=== PATIENT | male | born 1995 | race Caucasian/White ===

== ENCOUNTER → 2016-10-30 | Outpatient (CLI) | payer OTHER | LOC: CIMAGING 08:47 | PROVIDERS: ATTEND Physician Assistant Medical | DX: R10.11 Right upper quadrant pain (principal) | CPT/HCPCS: 76705-PO ==

== ENCOUNTER → 2016-11-07 | Outpatient (CLI) | payer OTHER | LOC: FIMAGING 08:18 | PROVIDERS: ATTEND Physician Assistant | DX: R10.31 Right lower quadrant pain (principal); Z90.49 Acquired absence of other specified parts of digestive tract ==

== ENCOUNTER 2017-05-10 22:08 | Emergency (ER) | payer OTHER ==
[2017-05-10 22:23] VITALS: BP 120/90; PULSE 77; RESP 18; TEMP 97.2; O2SAT 96
--- NOTE | 2017-05-10 22:36 | EDPHY ---
H & P Stated Complaint: R TESTICULAR PAIN, FINISHED ANTIBIOTIC YESTERDAY. Time Seen by Provider: 05/10/17 22:11 HPI/ROS: Chief Complaint: Right scrotal pain HPI: 22-year-old male was diagnosed with right-sided epididymitis clinically 2 weeks ago. He was started on doxycycline. Patient completed the antibiotic yesterday. Pain had been getting better but for the last 3 hr doses scantly worsening pain in the same area. Patient had a similar episode last summer and was treated for antibiotics at that time. He was also recently diagnosed with Crohn's disease within the last 3 months. He is currently taking Humira. No urinary urgency or frequency. No new sexual partners. No history of STI in the past. No fevers or chills. No skin rash or redness. ROS: 10 point Review of Systems is negative except as noted in the HPI. PMH: Crohn's disease, epididymitis, appendectomy Social History: No smoking, no alcohol, no recreational drug use Family History: non-contributory Physical Exam: Gen: Awake, Alert, No Distress HEENT: Nose: no rhinorrhea Eyes: PERRLA, EOMI Mouth: Moist mucosa Neck: Supple, no JVD Chest: nontender, lungs clear to auscultation Heart: S1, S2 normal, no murmur Abd: Soft, non-tender, no guarding Genital: Normal circumcised penis, with lesions. Nontender. Normal testicular lie bilaterally. No testicular tenderness bilaterally. There is some right-sided epididymal enlargement with tenderness reproducing presenting complaint. No inguinal lymphadenopathy. No inguinal masses. No erythema. Not warm to the touch. Normal cremasteric. Back: no CVA tenderness, no midline tenderness Ext: no edema, non-tender Skin: no rash Neuro: CN II-XII intact, Sensation grossly intact, Strength 5/5 in bilateral upper and lower extremities - Personal History Current Tetanus Diphtheria and Acellular Pertussis (TDAP): Yes - Medical/Surgical History Hx Asthma: No Hx Chronic Respiratory Disease: No Hx Diabetes: No Hx Cardiac Disease: No Hx Renal Disease: No Hx Cirrhosis: No Hx Alcoholism: No Hx HIV/AIDS: No Hx Splenectomy or Spleen Trauma: No Other PMH: CHRON'S - Social History Smoking Status: Former smoker Constitutional: Initial Vital Signs Temperature (C) 36.2 C 05/10/17 22:17 Heart Rate 77 05/10/17 22:17 Respiratory Rate 18 05/10/17 22:17 Blood Pressure 120/90 H 05/10/17 22:17 O2 Sat (%) 96 05/10/17 22:17 O2 Delivery Mode Room Air Allergies/Adverse Reactions: No Known Allergies Allergy (Verified 05/10/17 22:15) Home Medications: Medication Instructions Recorded Adalimumab [Humira] 05/10/17 Hydrocodone/Acetaminophen 1 - 2 each PO Q4-6PRN PRN #10 05/10/17 [Hydrocodon-Acetaminophen 5-325] tablet Hyoscyamine Sulfate 05/10/17 Pantoprazole Sodium 05/10/17 levOFLOXACIN [Levaquin] 500 mg PO DAILY #14 tablet 05/10/17 Medical Decision Making ED Course/Re-evaluation: 22-year-old male presenting with symptoms consistent with epididymitis and clinical exam suggestive of very mild epididymitis. Does not have a large amount of scrotal swelling or erythema. He has no testicular lying cremasteric. No indications for ultrasound at this time. Will start him on Levaquin as he completed a course of doxycycline without significant improvement. Will discharge him with strict instructions return for any worsening symptoms. While for referral for urology follow-up. Will send him home with hydrocodone and a prescription for his pain control. There are no clinical or historical findings suggestive of torsion. Departure - Departure Disposition: Home, Routine, Self-Care Clinical Impression: Epididymitis Condition: Good Instructions: Epididymitis (ED), Hydrocodone/Acetaminophen (By mouth) Additional Instructions: Please take your full course of antibiotics. Follow up with primary care physician in 2-3 days for re-evaluation. Follow up with urologist next week for further evaluation. Return to the emergency depart for increasing pain, redness, fevers, chills, nausea, vomiting, or any other concerns. Referrals: Santhosh Birmingham MD [Primary Care Provider] - As per Instructions Prescriptions: Hydrocodone/Acetaminophen [Hydrocodon-Acetaminophen 5-325] 1 - 2 each PO Q4- 6PRN PRN #10 tablet PRN Reason: Pain, Severe levOFLOXACIN [Levaquin] 500 mg PO DAILY #14 tablet
[2017-05-10] MEDS ORDERED: HYDROCOD/APAP 5/325 PREPACK#6 BTL TAKEHOME ONE (22:39)
== END 2017-05-10 22:52 | disposition home or self-care (01) ==
LOC: CED 22:08
DX: N45.1 Epididymitis (principal); Z87.891 Personal history of nicotine dependence

== ENCOUNTER 2017-05-17 09:50 | Emergency (ER) | payer OTHER ==
[2017-05-17 09:57] VITALS: RESP 16; TEMP 98.4; O2SAT 96
--- NOTE | 2017-05-17 10:20 | EDPHY ---
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 He was not doing any heavy lifting or work. The pain is worse when he moves around such as twisting or sitting up. He says he sometimes feels like something pops out of place in his lower ribs particularly on the right. The he has had this lower rib pain previously but it is resolved however it has been persistent for the past 24 hr. He took hydrocodone that he had for his epididymitis with minimal relief but states he was able to sleep. He denies any recent trauma to the chest. The pain is not pleuritic. He denies any shortness of breath. He denies any fever, chills, nausea or vomiting. He has had no cough. He says his Crohn's disease has been in fairly good control. He is currently taking levofloxacin since May 15 for epididymitis. This was initially diagnosed clinically 2 weeks prior to that when he was treated with doxycycline but did not improve so we started on the levo. Since taking levofloxacin the testicular and epididymal pain has completely resolved although he says he still continues to have"cysts". He denies any dysuria, urgency frequency or penile discharge. He has no new sexual partners and has no prior history of STDs. Patient is been on ciprofloxacin in the past which gave him a severe tendinitis in his arms and legs. REVIEW OF SYSTEMS: As in HPI, and all other systems reviewed and are negative Smoking Status: Former smoker Physical Exam: General Appearance: Alert, well appearing, speaking full sentences. Head: normocephalic, atraumatic Eyes: Pupils equal and round, reactive to light, no pallor or injection. Extraocular movements intact Mouth: Mucous membranes moist. Respiratory: Normal, effort, lungs are clear to auscultation. No wheezes, rales or rhonchi. No chest wall tenderness, no lower rib tenderness or crepitus or step-off, very mild lower sternal tenderness, no posterior rib tenderness Cardiovascular: Regular rate and rhythm. S1, S2, no murmurs, gallops or rubs appreciated Gastrointestinal: Abdomen is soft and nontender, no masses, bowel sounds normal. Back: No CVA tenderness, no bony tenderness Neurological: Awake, alert and oriented x 3, no pronator drift, normal gait, no pronator drift Skin: Warm and dry, diffuse acne. Musculoskeletal: No deformities or tenderness. Full range of motion Extremities: no edema, no tenderness, DP2+ bilat Psychiatric: Patient has normal affect, there is no agitation. Constitutional: Initial Vital Signs Temperature (C) 36.9 C 05/17/17 09:54 Heart Rate 98 05/17/17 09:54 Respiratory Rate 16 05/17/17 09:54 Blood Pressure 133/98 H 05/17/17 09:54 O2 Sat (%) 96 05/17/17 09:54 O2 Delivery Mode Room Air Allergies/Adverse Reactions: azathioprine [From Imuran] Allergy (Verified 05/17/17 09:57) Pt reports red/swelling hands ciprofloxacin Allergy (Verified 05/17/17 09:57) Pt reports tendonitis Home Medications: Medication Instructions Recorded Adalimumab [Humira] 05/10/17 Hyoscyamine Sulfate 05/10/17 Pantoprazole Sodium 05/10/17 Lidocaine [Lidoderm] 1 each TP DAILY PRN #30 adh..patch 05/17/17 levOFLOXACIN [Levaquin] 05/17/17 MDM/Departure - MDM Imaging Results: Imaging Impressions Chest X-Ray 05/17/17 10:12 Impression: Normal. Imaging: I viewed and interpreted images myself ED Course/Re-evaluation: 21-year-old man presents with localized chest wall pain and unremarkable exam. Chest x-ray shows nothing acute. There is no evidence of respiratory compromise or 6 significant systemic toxicity. Patient has had a problem with ciprofloxacin the past which gave him tendinitis in other muscle pains. I wonder if his symptoms could be related to the levofloxacin and he has been on this for 10 days so we will stop this. I am recommending symptomatic treatment with acetaminophen and topical lidocaine patches. We discussed return precautions including but not limited to fever, uncontrolled pain, difficulty breathing or other new problems or concerns. - Depart Disposition: Home, Routine, Self-Care Clinical Impression: Anterior chest wall pain Condition: Good Instructions: Chest Wall Pain (ED) Additional Instructions: You were seen by Dr. Erika Hutchinson today. Try taking acetaminophen a 1000 mg every 4 hr while awake as needed for pain. Try also topical lidocaine patches. Stop the levofloxacin. I recommend you avoid all Floxin antibiotics in the future. Return for any worsening or new concerns. Prescriptions: Lidocaine [Lidoderm] 1 each TP DAILY PRN #30 adh..patch PRN Reason: pain Referrals: Santhosh Birmingham MD [Primary Care Provider] - As per Instructions
[2017-05-17 11:03] VITALS: BP 133/69; PULSE 86
== END 2017-05-17 11:04 | disposition home or self-care (01) ==
LOC: CED 09:50
DX: R07.89 Other chest pain (principal); Z87.891 Personal history of nicotine dependence
CPT/HCPCS: 71046-PO

== ENCOUNTER 2017-05-26 15:54 | Emergency (ER) | payer OTHER ==
--- NOTE | 2017-05-26 16:30 | EDPHY ---
H & P Time Seen by Provider: 05/26/17 16:10 HPI/ROS: CHIEF COMPLAINT: Testicular pain, possible epididymal cyst HISTORY OF PRESENT ILLNESS: This is a 22-year-old male presents to the emergency department reporting for the last 3-4 days he has had testicular discomfort and is concerned he may have epididymal cyst. Patient does have a history of being treated for epididymitis several years ago. Over the last month, he has been seen on 2 occasions for right scrotal discomfort with the majority of his discomfort being in the epididymis. He was treated initially with levofloxacin after visit [place] [facility] [place] at the end of April. He took levofloxacin for 9 days and developed some chest discomfort that was thought to potentially be related to the levofloxacin. He does have a history of developing tendinitis in the setting of ciprofloxacin in the remote past. He presents again today, about 1 week after stopping the levofloxacin, reporting discomfort in his left testicle and concerned that he has a left epididymal cyst. He has had no fever, no dysuria, no hematuria, no penile discharge. No lesions on his penis. Patient reports no unprotected sex for approximately 3 years. He reports last sexual intercourse was several months ago. His partner is out of state. Discomfort is worse when standing and walking, improved when resting. No fever, chills, chest pain, shortness of breath, palpitations, vomiting, diarrhea, urinary complaints, headache, lightheadedness. REVIEW OF SYSTEMS: Aside from elements discussed in the HPI, a comprehensive 10-point review of systems was reviewed and is negative. PAST MEDICAL HISTORY: History of Crohn's disease, and epididymitis. Currently taking Humira. SOCIAL HISTORY: Heterosexual. Nonsmoker. VITAL SIGNS Reviewed by me. GENERAL: Well-developed, well-nourished, no acute distress. HEENT: Benign exam, no conjunctival injection LUNGS: Clear to auscultation bilaterally, no wheezes, rhonchi or rales. CARDIAC: Regular rate and rhythm, no rubs, murmurs or gallops. ABDOMEN: Soft, nontender, nondistended, bowel sounds normal. BACK: No CVA tenderness. : Normal external genitalia. Circumcised male. No penile lesions. Mild tenderness to palpation along the epididymis bilaterally. Testes have a normal lie. No scrotal swelling. EXTREMITIES: No trauma. No edema. Range of motion is normal throughout. NEURO: Alert and oriented, grossly nonfocal. SKIN: Warm and dry, no rash. PSYCHIATRIC: Normal mentation, no agitation. Smoking Status: Former smoker Constitutional: Initial Vital Signs Temperature (C) 36.8 C 05/26/17 15:58 Heart Rate 85 05/26/17 15:58 Respiratory Rate 16 05/26/17 15:58 Blood Pressure 128/68 H 05/26/17 15:58 O2 Sat (%) 97 05/26/17 15:58 O2 Delivery Mode Room Air Allergies/Adverse Reactions: azathioprine [From Imuran] Allergy (Verified 05/17/17 09:57) Pt reports red/swelling hands ciprofloxacin Allergy (Verified 05/17/17 09:57) Pt reports tendonitis levofloxacin [From Levaquin] Allergy (Verified 05/26/17 16:00) Home Medications: Medication Instructions Recorded Adalimumab [Humira] 05/10/17 Hyoscyamine Sulfate 05/10/17 Pantoprazole Sodium 05/10/17 Lidocaine [Lidoderm] 1 each TP DAILY PRN #30 adh..patch 05/17/17 Cephalexin [Keflex (RX)] 500 mg PO TID 7 Days cap 05/26/17 Hydrocodone/APAP 5/325 [Fidelity 1 tab PO Q6H PRN #10 tab 05/26/17 5/325 (RX)] Medical Decision Making - Diagnostics Imaging Results: Imaging Impressions Testicular Ultrasound 05/26/17 16:12 Impression: 1. Normal-appearing testicles. 2. Increased color flow pattern to the body and tail the left epididymis suggestive of epididymitis. Findings discussed with Mayra Olivera MD at 17:19 hour, 05/26/2017. ED Course/Re-evaluation: 22-year-old male presents to the emergency department with recurrent testicular and epididymal pain. Has had no fever or other infectious symptoms. Has not had ultrasound thus far. Patient will have an ultrasound, urine obtained for GC and chlamydia, and urine obtained for urinary tract infection or prostatitis. UA negative Ultrasound consistent with left epididymitis. Discussion held with the patient concerning possible antibiotic traces. He reports no recent sexual activity. He is unable to tolerate fluoroquinolones. Will start the patient on Keflex and asked him to follow up with Urology. He also has an appointment to go to [facility] next week. Differential Diagnosis: Differential diagnosis for the patient testicular pain was considered including but not limited to epididymitis, orchitis, referred pain from kidney stone, inguinal hernia, and torsion of the testicle. - Data Points Laboratory Results: 05/26/17 05/26/17 16:38 16:38 Urine Color YELLOW Urine Appearance CLEAR Urine pH 6.5 (5.0-7.5) Ur Specific [place] <= 1.005 (1.002-1.030) Urine Protein NEGATIVE (NEGATIVE) Urine Ketones NEGATIVE (NEGATIVE) Urine Blood NEGATIVE (NEGATIVE) Urine Nitrate NEGATIVE (NEGATIVE) Urine Bilirubin NEGATIVE (NEGATIVE) Urine Urobilinogen 0.2 EU EU (0.2-1.0) Ur Leukocyte Esterase NEGATIVE (NEGATIVE) Urine RBC NONE SEEN /hpf /hpf (0-3) Urine WBC NONE SEEN /hpf /hpf (0-3) Ur Epithelial Cells TRACE /lpf /lpf (NONE-1+) Urine Glucose NEGATIVE (NEGATIVE) C.trachomatis RNA (TMA) Pending N.gonorrhoeae RNA (TMA) Pending Medications Given: Discontinued Medications Acetaminophen (Tylenol) 1,000 mg PO EDNOW ONE Stop: 05/26/17 16:48 Last Admin: 05/26/17 16:51 Dose: 1,000 mg Departure - Departure Disposition: Home, Routine, Self-Care Clinical Impression: Epididymitis Condition: Good Instructions: Epididymitis (ED), Testicle Pain (ED) Additional Instructions: As we have discussed, since your at low risk for sexually transmitted disease and have inability to tolerate fluoroquinolones, I have prescribed Keflex for your epididymitis. Urine culture results and gonorrhea and chlamydia results will be available for you in the next 48 hr. If these are positive, you may need to have your antibiotic choice changed. Please continue to take Tylenol as needed for discomfort. You been given a short prescription of hydrocodone to use as needed for more severe pain. Please consider obtaining an athletic support to help elevate the testes as much as possible. This will help with the discomfort. Please take this documentation as well as the ultrasound with you to [facility]. For your information: Chronic noninfectious epididymitis Chronic noninfectious epididymitis can be precipitated by trauma, autoimmune disease, or vasculitis, but no etiology is identified in many cases. Idiopathic noninfectious epididymitis is thought to be the result of reflux of urine through the ejaculatory ducts and vas deferens into the epididymis, producing a chemical inflammation with resultant swelling and ductal obstruction. It can occur, however, even in men who have had a previous vasectomy. Typical inciting factors include prolonged periods of sitting (eg, long plane or car travel, sedentary desk jobs) or vigorous exercise (eg, heavy lifting). Unlike acute infectious epididymitis, patients have less pain and swelling on physical examination. The diagnosis is made by lack of response to empiric antibiotic therapy. Management includes scrotal elevation, nonsteroidal antiinflammatory drugs (NSAIDs), and avoidance of activities that precipitate symptoms. Referrals: Santhosh Birmingham MD [Primary Care Provider] - As per Instructions Prescriptions: Cephalexin [Keflex (RX)] 500 mg PO TID 7 Days cap Hydrocodone/APAP 5/325 [Fidelity 5/325 (RX)] 1 tab PO Q6H PRN #10 tab PRN Reason: Pain
[2017-05-26] MEDS ORDERED: ACETAMINOPHEN 500 MG TAB PO ONE (16:47)
[2017-05-26 17:51] VITALS: BP 118/71; PULSE 87; RESP 18; TEMP 98.6; O2SAT 98
[2017-05-27 12:17] LABS: GC AMPLIFICATION GENPROBE NEGATIVE (NEGATIVE)
== END 2017-05-26 17:50 | disposition home or self-care (01) ==
LOC: CED 15:54
DX: N45.1 Epididymitis (principal); Z87.891 Personal history of nicotine dependence
CPT/HCPCS: 76870-PO; 81003-PO; 81015-PO

== ENCOUNTER 2017-06-05 19:40 | Emergency (ER) | payer OTHER ==
[2017-06-05 19:52] VITALS: RESP 16
[2017-06-05] MEDS ORDERED: NS 1,000 ML IV ONE (20:14)
[2017-06-05 20:19] LABS: PLATELET COUNT 315 10^3/uL (150-400)
[2017-06-05] MEDS ORDERED: HYOSCYAMINE SULFATE 0.125 MG TAB PO ONE (20:23)
--- NOTE | 2017-06-05 21:13 | EDPHY ---
H & P Stated Complaint: Umbilical/RLQ abdo pain and nausea. Time Seen by Provider: 06/05/17 19:58 HPI/ROS: This patient reports the 2 day history of increasing abdominal pain was initially intermittent is now more steady and crampy in nature-periumbilical with peak intensity 7/10, currently 3 to 4/10. He has associated nausea. Symptoms worsen when he eats food so he reports that he has been eating last due to this. He reports mild improvement from Levsin-0.125 mg dose last night. He has small bowel movements that he correlates to eating less over the same period of time. No other exacerbating factors were noted. However, he denies any bloody stools or other significant change to the the nature of his stools. He has a history of Crohn's disease just diagnosed 3 months ago a GI of the [facility] and sees Dr. Marilou Walsh there. . He takes Humira for this-40 mg subcu Q 2 weeks. He drove himself here by private vehicle for further evaluation of the symptoms. ROS: Constitutional: No fevers HEENT: No recent URI symptoms except occasional coryza. Pulmonary: No cough shortness of breath Cardiovascular: No lightheadedness or chest pain. GI: No dark tarry stools or bloody stools. He has again some nausea but no vomiting. : No urinary symptoms. No testicular pain. His recent history includes diagnosis of epididymitis by ultrasound with normal urine and negative GC and Chlamydia studies on May 26. He is midway through a 2 week Keflex course and reports resolution of the pain is testicles that he was experiencing prior to treatment. Currently no dysuria, frequency, urgency, urethral discharge, testicular swelling or other complaints. Also, no flank pain. A review of his chart from [facility] emergency department on May 26 reveals no STD risk factors. Integumentary: No skin rash Endocrine: No complaints Complete review of symptoms otherwise negative Source: Patient Exam Limitations: No limitations - Personal History Current Tetanus/Diphtheria Vaccine: Unsure Current Tetanus Diphtheria and Acellular Pertussis (TDAP): Unsure Tetanus Vaccine Date: within 10 years - Medical/Surgical History PMH: Crohn's disease, appendicitis, epididymitis (negative for chlamydia and GC) Hx Asthma: No Hx Chronic Respiratory Disease: No Hx Diabetes: No Hx Cardiac Disease: No Hx Renal Disease: No Hx Cirrhosis: No Hx Alcoholism: No Hx HIV/AIDS: No Hx Splenectomy or Spleen Trauma: No Other PMH: Crohns disease, Appy 2017, Epidymitis, Family history of Esinophil Gastroenteritis - Family History Significant Family History: No pertinent family hx - Social History Smoking Status: Former smoker Alcohol Use: Rarely Drug Use: None - Physical Exam Exam: General Appearance: Alert, no distress. Eyes: Pupils equal and round no pallor or injection. ENT, Mouth: Mucous membranes moist. Respiratory: There are no retractions, lungs are clear to auscultation. Cardiovascular: Regular rate and rhythm. Gastrointestinal: Normoactive, soft, minimal periumbilical tenderness with no guarding or rebound. He also has mild right lower quadrant tenderness with no guarding or rebound. Back: No CVA tenderness : No testicular tenderness Neurological: GCS 15 with no focal deficits. Skin: Warm and dry, no rashes. Musculoskeletal: Neck is supple nontender. Extremities are symmetrical, full range of motion. Psychiatric: Mood and affect are normal DIFFERENTIAL DIAGNOSIS: After history and physical exam differential diagnosis was considered for Crohn's flare, viral illness, mesenteric adenitis, bowel obstruction, bowel abscess, diverticulitis Constitutional: Initial Vital Signs Temperature (C) 36.9 C 06/05/17 19:50 Heart Rate 86 06/05/17 19:50 Respiratory Rate 16 06/05/17 19:50 Blood Pressure 139/85 H 06/05/17 19:50 O2 Sat (%) 94 06/05/17 19:50 O2 Delivery Mode Room Air Allergies/Adverse Reactions: azathioprine [From Imuran] Allergy (Verified 06/05/17 19:52) Pt reports red/swelling hands ciprofloxacin Allergy (Verified 06/05/17 19:52) Pt reports tendonitis levofloxacin [From Levaquin] Allergy (Verified 06/05/17 19:52) Home Medications: Medication Instructions Recorded Adalimumab [Humira] 05/10/17 Hyoscyamine Sulfate 05/10/17 Pantoprazole Sodium 05/10/17 Lidocaine [Lidoderm] 1 each TP DAILY PRN #30 adh..patch 05/17/17 Cephalexin [Keflex (RX)] 500 mg PO TID 7 Days cap 05/26/17 Ondansetron Odt [Zofran Odt] 4 - 8 mg PO Q4PRN PRN #4 tab 06/05/17 predniSONE 20 mg PO BID #28 tab 06/05/17 Medical Decision Making ED Course/Re-evaluation: Studies: [place] [id number] with a left shift. Metabolic panel is normal. Urinalysis is normal. Patient is treated with Levsin Toradol IV fluid with mild improvement. I spoke with Dr. Edith Guerra regarding this patient- the on-call GI specialist for Dr. Marilou Walsh, pt's primary GI specialist. He suggests any prednisone course -40 mg a day for 2 weeks followed by taper. He also provide a 2 week course and that GI the [facility] would see him within the 2 weeks for further evaluation. Patient is given a 1st dose of prednisone 40 mg here tonight. He has been on prednisone in the past and tolerated this. I discussed medications and potential side effects with him prior to administration. Discussion: This patient has no fever and at pretty benign belly exam at this time with only minimal tenderness, good bowel sounds, no vomiting and findings most consistent with Crohn's flare. However I explained the differential diagnosis including potential colonic or small bowel abscess, perforation obstruction or other pathology that would go missed without CT imaging. We also discussed ionizing radiation. Patient has had 3 or 4 CTs within the past year. He is comfortable holding off on CT imaging at this time given his relative benign current presentation, understanding the risk of potentially missing acute bowel pathology. He will return emergency department if he develops worsening symptoms despite treatment of his Crohn's flare. Plan is for him to go home on the prednisone as well as Levsin for comfort and Zofran as needed. - Data Points Laboratory Results: Laboratory Results 06/05/17 20:00 06/05/17 20:00 06/05/17 06/05/17 06/05/17 20:50 20:00 20:00 WBC 13.94 10^3/uL H 10^3/uL (3.80-9.50) RBC 5.16 10^6/uL 10^6/uL (4.40-6.38) Hgb 14.4 g/dL g/dL (13.7-17.5) Hct 43.6 % % (40.0-51.0) MCV 84.5 fL fL (81.5-99.8) MCH 27.9 pg pg (27.9-34.1) MCHC 33.0 g/dL g/dL (32.4-36.7) RDW 12.3 % % (11.5-15.2) Plt Count 315 10^3/uL 10^3/uL (150-400) MPV 10.9 fL fL (8.7-11.7) Neut % (Auto) 73.7 % % (39.3-74.2) Lymph % (Auto) 17.4 % % (15.0-45.0) [place] % (Auto) 6.6 % % (4.5-13.0) Eos % (Auto) 1.5 % % (0.6-7.6) Baso % (Auto) 0.4 % % (0.3-1.7) Nucleat RBC Rel Count 0.0 % % (0.0-0.2) Absolute Neuts (auto) 10.27 10^3/uL H 10^3/uL (1.70-6.50) Absolute Lymphs (auto) 2.42 10^3/uL 10^3/uL (1.00-3.00) Absolute Monos (auto) 0.92 10^3/uL H 10^3/uL (0.30-0.80) Absolute Eos (auto) 0.21 10^3/uL 10^3/uL (0.03-0.40) Absolute Basos (auto) 0.06 10^3/uL 10^3/uL (0.02-0.10) Absolute Nucleated RBC 0.00 10^3/uL 10^3/uL (0-0.01) Immature Gran % 0.4 % % (0.0-1.1) Immature Gran # 0.06 10^3/uL 10^3/uL (0.00-0.10) Sodium 140 mEq/L mEq/L (135-145) Potassium 4.0 mEq/L mEq/L (3.5-5.2) Chloride 102 mEq/L mEq/L (97-110) Carbon Dioxide 24 mEq/l mEq/l (22-31) Anion Gap 14 mEq/L mEq/L (8-16) BUN 11 mg/dL mg/dL (7-23) Creatinine 0.8 mg/dL mg/dL (0.7-1.3) Estimated GFR > 60 Glucose 96 mg/dL mg/dL (70-100) Calcium 9.8 mg/dL mg/dL (8.5-10.4) Urine Color YELLOW Urine Appearance CLEAR Urine pH 6.5 (5.0-7.5) Ur Specific [place] 1.010 (1.002-1.030) Urine Protein NEGATIVE (NEGATIVE) Urine Ketones NEGATIVE (NEGATIVE) Urine Blood NEGATIVE (NEGATIVE) Urine Nitrate NEGATIVE (NEGATIVE) Urine Bilirubin NEGATIVE (NEGATIVE) Urine Urobilinogen 0.2 EU EU (0.2-1.0) Ur Leukocyte Esterase NEGATIVE (NEGATIVE) Urine Glucose NEGATIVE (NEGATIVE) Medications Given: Discontinued Medications Hyoscyamine Sulfate (Levsin, Hyomax-Sl) 0.125 mg PO EDNOW ONE Stop: 06/05/17 20:24 Last Admin: 06/05/17 20:28 Dose: 0.125 mg Sodium Chloride (Ns) 1,000 mls @ 0 mls/hr IV EDNOW ONE; Wide Open PRN Reason: Protocol Stop: 06/05/17 20:15 Last Admin: 06/05/17 20:25 Dose: 1,000 mls Ondansetron HCl (Zofran Odt 4 Mg Prepack#2) 1 btl TAKEHOME EDNOW ONE Stop: 06/05/17 21:26 Last Admin: 06/05/17 21:32 Dose: 1 btl Prednisone (Prednisone) 40 mg PO EDNOW ONE Stop: 06/05/17 21:25 Last Admin: 06/05/17 21:33 Dose: 40 mg Departure - Departure Disposition: Home, Routine, Self-Care Clinical Impression: Crohn's disease (regional enteritis) Qualifiers: Gastrointestinal tract location: unspecified location Digestive disease complication type: without complication Qualified Code(s): K50.90 - Crohn's disease, unspecified, without complications Condition: Good Instructions: Crohn Disease (ED) Additional Instructions: Diagnosis: Crohn's disease flare Plan: Continue current medications Out prednisone-20 mg the morning and 20 mg in the afternoon at lunch for 2 weeks. Tylenol and Levsin for cramping if needed Zofran for nausea vomiting Call your GI specialist-Dr. Marilou Walsh to arrange follow-up appointment for sometime within the next 7-14 days. Return emergency department for any significant worsening despite the treatment plan Referrals: Santhosh Birmingham MD [Primary Care Provider] - As per Instructions Marilou Walsh MD [Medical Doctor] - As per Instructions Prescriptions: Ondansetron Odt [Zofran Odt] 4 - 8 mg PO Q4PRN PRN #4 tab PRN Reason: Vomiting predniSONE 20 mg PO BID #28 tab
[2017-06-05] MEDS ORDERED: predniSONE 20 MG TAB PO ONE (21:24)
[2017-06-05] MEDS ORDERED: ONDANSETRON 4MG PREPACK#2 BTL TAKEHOME ONE (21:25)
[2017-06-05 21:57] VITALS: BP 120/65; PULSE 84; TEMP 97.7; O2SAT 95
== END 2017-06-05 20:45 | disposition home or self-care (01) ==
LOC: CED 19:40
DX: K50.90 Crohn's disease, unspecified, without complications (principal); E86.9 Volume depletion, unspecified; Z87.891 Personal history of nicotine dependence
CPT/HCPCS: 80048-PO; 81003-PO; 85025-PO; J7512

== ENCOUNTER 2018-09-10 19:29 | Emergency (ER) | payer OTHER | END 2018-09-10 20:22 | disposition home or self-care (01) ==